=== PATIENT | male | born 1985 | race Caucasian/White ===

== ENCOUNTER 2017-03-19 15:11 | Emergency (ER) | payer BC, OTHER ==
[2017-03-19 18:38] VITALS: BP 137/90
--- NOTE | 2017-03-19 19:25 | UC ---
FLU HPI - HPI Summary HPI Summary: 31 y/o male presents to the urgent care c/o dry cough, nasal congestion w/ clear nasal discharge, mild sore throat, chills, body aches since this morning. Pt has taking Dayquill to alleviate symptoms, YOU is 08/20. Pt denies SOB, chest pain, N/V/D. - History of Current Complaint Hx Obtained From: Patient Onset/Duration: Gradual Onset, Lasting Hours - this morning Severity Currently: Mild Severity Initially: Moderate Pain Intensity: 7 Pain Scale Used: 0-10 Numeric Associated Signs & Symptoms: Positive: Fever, Myalgia, Cough, Sore Throat, Nasal Congestion - Risk Factors Influenza Risk Factors: Negative <Bettie Mckeon - Last Filed: 03/20/17 14:26> <Priyanka Lloyd - Last Filed: 03/21/17 12:58> - History of Current Complaint Chief Complaint: UCRespiratory Stated Complaint: ST,KYLEIGH,SINUSES Time Seen by Provider: 03/19/17 19:17 - Allergy/Home Medications Allergies/Adverse Reactions: Allergies Allergy/AdvReac Type Severity Reaction Status Date / Time No Known Allergies Allergy Verified 03/19/17 18:38 Home Medications: Home Medications Acetaminophen/Dextromethorphan [Daytime Cold & Cough Liquid] 1 liq PO 03/19/17 [ History] PMH/Surg Hx/FS Hx/Imm Hx Previously Healthy: Yes - Pt denies PMHX - Surgical History Surgical History: Yes Surgery Procedure, Year, and Place: small intestine blockage - Family History Known Family History: Positive: None - Pt denies FMHx - Social History Occupation: Employed Full-time Lives: With Family Alcohol Use: Rare Substance Use Type: None Smoking Status (MU): Never Smoked Tobacco <Bettie Mckeon - Last Filed: 03/20/17 14:26> Review of Systems Constitutional: Chills, Fatigue, Other - body aches Skin: Negative Eyes: Negative ENT: Sore Throat, Nasal Discharge, Sinus Congestion Respiratory: Cough Cardiovascular: Negative Gastrointestinal: Negative Genitourinary: Negative Motor: Negative Neurovascular: Negative Musculoskeletal: Negative Neurological: Headache Psychological: Negative Is Patient Immunocompromised?: No All Other Systems Reviewed And Are Negative: Yes <Bettie Mckeon - Last Filed: 03/20/17 14:26> Physical Exam Triage Information Reviewed: Yes Vital Signs: Initial Vital Signs Temp 97.7 F 03/19/17 18:35 Pulse 71 03/19/17 18:35 Resp 18 03/19/17 18:35 BP 137/90 03/19/17 18:35 Pulse Ox 99 03/19/17 18:35 - Additional Comments VITAL SIGNS: Reviewed. GENERAL: Patient is a well developed and nourished male who is sitting comfortable in the examining table. Patient is not in any acute respiratory distress. HEAD AND FACE: No signs of trauma. No ecchymosis, hematomas or skull depressions. No sinus tenderness. edematous erythematous nasal mucosa with yellowish discharge, EYES: PERRLA, EOMI x 2, No injected conjunctiva, clear watery eyes, no nystagmus. No photophobia. EARS: Hearing grossly intact. Ear canals and tympanic membranes are within normal limits. MOUTH: Positive pharynx with erythema, no exudates,no palatal petechiae. no B/ L tonsillar enlargement Uvula in midline. NECK: Supple, trachea is midline, Positive anterior cervical lymphadenopathy, no JVD, no carotid bruit, no c-spine tenderness, neck with full ROM. No meningeal signs, no Kernig's or brudzinskis signs. CHEST: Symmetric, no tenderness at palpation LUNGS: Clear to auscultation bilaterally. No wheezing or crackles. CVS: Regular rate and rhythm, S1 and S2 present, no murmurs or gallops appreciated. ABDOMEN: Soft, non-tender. No signs of distention. No rebound no guarding, and no masses palpated. Bowel sounds are normal. EXTREMITIES: FROM in all major joints, no edema, no cyanosis or clubbing. NEURO: Alert and oriented x 3. No acute neurological deficits. Speech is normal and follows commands. SKIN: Dry and warm <Bettie Mckeon - Last Filed: 03/20/17 14:26> Vital Signs: Initial Vital Signs Temp 97.7 F 03/19/17 18:35 Pulse 71 03/19/17 18:35 Resp 18 03/19/17 18:35 BP 137/90 03/19/17 18:35 Pulse Ox 99 03/19/17 18:35 <Priyanka Lloyd - Last Filed: 03/21/17 12:58> Flu Course/Dx - Course Course Of Treatment: 31 y/o male presents to the urgent care c/o dry cough, nasal congestion w/ clear nasal discharge, mild sore throat, chills, body aches since this morning. Pt has taking Dayquill to alleviate symptoms, YOU is 08/20. Pt denies SOB, chest pain, N/V/D.Hx obtained. Pt with pharyngitis on examination. Rapid strep ordere: negative. Influenza A&B ordered: result: Influenza A positive.Pt Rx Tamiflu and ibuprofen PO to alleviates symptoms. Advised on hand washing and wear a mask to avoid spreading. Pt advised to rest, increase fluid intake, eat well and avoid strenuous exercise. If symptoms do not improve or worsen advised to return to the urgent care or f/u with her PCP for further evaluation and treatment. Pt's BP is elevated today advised to decrease salt in diet, monitor BP and f/u with PCP for further management.Pt understood and agreed with plan of care. - Differential Dx/Diagnosis Differential Diagnosis/HQI/PQRI: Bronchitis, Influenza, Pneumonia, Upper Respiratory Infection Provider Diagnoses: 1- Influenza A. 2- elevated BP w/o Hx of HTN <Bettie Mckeon - Last Filed: 03/20/17 14:26> Discharge <Bettie Mckeon - Last Filed: 03/20/17 14:26> <Priyanka Lloyd - Last Filed: 03/21/17 12:58> - Discharge Plan Condition: Stable Disposition: HOME Prescriptions: Ibuprofen TAB* [Motrin TAB* 800 MG] 800 mg PO Q6H #20 tab Oseltamivir CAP* [Tamiflu CAP*] 75 mg PO BID #10 cap Patient Education Materials: Influenza (ED), Low-Sodium Diet (ED) Forms: *Work Release Referrals: [facility] [place] [facility] REFERRAL [Outside] - 3 Days Additional Instructions: 1- Please take the full course of the antiviral to avoid resistance. Encourage hand washing and wear a mask to avoid spreading. 2-Please continue taking Ibuprofen PO q6-8hrs prn as instructed after meals to alleviate fever, and sore throat. Increase fluid intake, eat well, rest and avoid strenuous exercise 3-If symptoms do not improve or worsen please return to the urgent care or f/u with your PCP in 2 days for further evaluation and treatment. 4-Your BP is elevated today. please decrease salt in your diet, monitor BP and if it continues to be elevated please f/u with your PCP for further management Attestation Statement User Type: Provider - I was available for consult. This patient was seen by the TOR[facility]. The patient was not presented to, seen by, or examined by me. Yuliana <Priyanka Lloyd - Last Filed: 03/21/17 12:58>
== END 2017-03-19 19:55 | disposition home or self-care (01) ==
LOC: UCCORT 15:11
DX: J11.1 Influenza due to unidentified influenza virus with other respiratory manifestations (principal); R03.0 Elevated blood-pressure reading, without diagnosis of hypertension
CPT/HCPCS: 87502; 87651; 99202; G0463

== ENCOUNTER 2018-01-07 14:25 | Emergency (ER) | payer OTHER ==
[2018-01-07 15:19] VITALS: BP 130/78
--- NOTE | 2018-01-07 15:32 | UC ---
UC General HPI - HPI Summary HPI Summary: 5-6 DAY HX SINUS PAIN, PRESSURE AND CONGESTION. HAS A SORE THROAT BUT THINKS POST NASAL DRIP RELATED. SUDDENLY FEELING MUCH WORSE. PRIOR HX SINUS INFECTION AND THIS FEELS THE SAME. PURULENT DRAINAGE AND HEADACHE. - History of Current Complaint Chief Complaint: UCGeneralIllness Stated Complaint: ST/CONGESTION Hx Obtained From: Patient Onset/Duration: Gradual Onset Timing: Constant Pain Intensity: 8 Alleviating: NOTHING, TAKING OTC MEDICATIONS Associated Signs & Symptoms: Negative: Fever - Allergy/Home Medications Allergies/Adverse Reactions: Allergies Allergy/AdvReac Type Severity Reaction Status Date / Time No Known Allergies Allergy Verified 01/07/18 15:19 Home Medications: Home Medications Dayquil 1 tab BID 01/07/18 [History Confirmed 01/07/18] PMH/Surg Hx/FS Hx/Imm Hx - Additional Past Medical History Additional PMH: SINUSITIS - Surgical History Surgical History: Yes Surgery Procedure, Year, and Place: small intestine blockage - Family History Known Family History: Positive: None - Pt denies FMHx - Social History Occupation: Employed Full-time Alcohol Use: Occasionally Substance Use Type: None Smoking Status (MU): Never Smoked Tobacco - Immunization History Vaccination Up to Date: Yes Review of Systems All Other Systems Reviewed And Are Negative: Yes Constitutional: Positive: Negative Skin: Positive: Negative Eyes: Positive: Negative ENT: Positive: Nasal Discharge, Sinus Congestion, Sinus Pain/Tenderness Respiratory: Positive: Negative Cardiovascular: Positive: Negative Gastrointestinal: Positive: Negative Genitourinary: Positive: Negative Motor: Positive: Negative Neurovascular: Positive: Negative Musculoskeletal: Positive: Negative Neurological: Positive: Headache Psychological: Positive: Negative Is Patient Immunocompromised?: No Physical Exam Triage Information Reviewed: Yes Appearance: Well-Appearing Vital Signs: Initial Vital Signs Temp 97.5 F 01/07/18 15:17 Pulse 70 01/07/18 15:17 Resp 16 01/07/18 15:17 BP 130/78 01/07/18 15:17 Pulse Ox 99 01/07/18 15:17 Vital Signs Reviewed: Yes Eyes: Positive: Conjunctiva Clear ENT: Positive: Pharynx normal, Nasal congestion, TMs normal, Sinus tenderness. Negative: Nasal drainage Neck: Positive: Supple, Nontender, No Lymphadenopathy Respiratory: Positive: Lungs clear, Normal breath sounds Cardiovascular: Positive: RRR, No Murmur Abdomen Description: Positive: Nontender, No Organomegaly, Soft Bowel Sounds: Positive: Present Musculoskeletal: Positive: ROM Intact Neurological: Positive: Alert Psychological: Positive: Age Appropriate Behavior Skin Exam: Normal, Other - face is flushed Course/Dx - Diagnoses Provider Diagnosis: Sinusitis Discharge - Sign-Out/Discharge Documenting (check all that apply): Patient Departure All imaging exams completed and their final reports reviewed: No Studies - Discharge Plan Condition: Stable Disposition: HOME Prescriptions: Amoxicillin/Clavulanate TAB* [Augmentin TAB 875*] 875 mg PO BID 10 Days #20 tab Patient Education Materials: Sinusitis (ED) Referrals: Di Mckeon MD [Medical Doctor] - 7 Days Additional Instructions: CONSIDER A DECONGESTANT - Billing Disposition and Condition Condition: STABLE Disposition: Home - Attestation Statements Provider Attestation: I was available for consult. This patient was seen by the TORI. The patient was not presented to, seen by, or examined by me. -Yuliana
== END 2018-01-07 16:33 | disposition home or self-care (01) ==
LOC: UCCORT 14:25
DX: J32.9 Chronic sinusitis, unspecified (principal)
CPT/HCPCS: 87651; 99212; G0463